=== PATIENT | female | born 1935 | race Caucasian/White ===

== ENCOUNTER 2022-07-14 17:19 | Inpatient (IN) ==
[2022-07-14] MEDS ORDERED: Ondansetron ODT 4 MG TAB.RAPDIS SL PRN (20:29)
[2022-07-14] MEDS ORDERED: Naloxone 0.4 MG/ML INJ IVP PRN ×2 (20:29→20:41)
[2022-07-14] MEDS ORDERED: Melatonin 3 MG TABLET PO PRN (20:29)
[2022-07-14] MEDS ORDERED: D5% in Water 1,000 ML IVC PRN (20:30)
[2022-07-14] MEDS ORDERED: Dextrose Gel 15 GM/37.5 ML TUBE PO PRN ×2 (20:30)
[2022-07-14] MEDS ORDERED: *HR* Dextrose 50 % in Water (Syg) 50 ML SYRINGE IVP PRN (20:30)
[2022-07-14] MEDS ORDERED: Acetaminophen 325 MG TABLET PO PRN (20:41)
[2022-07-14] MEDS ORDERED: Ondansetron 4 MG/2 ML VIAL IVP PRN (20:41)
[2022-07-14 22:11] LABS: Calcium 9.2 mg/dL (8.6-10.3); Potassium 5.8 mEq/L (3.5-5.1)
[2022-07-14 22:29] LABS: Magnesium 2.1 mg/dL (1.6-2.6); Troponin I 0.03 ng/mL (< 0.04)
[2022-07-14 22:31] LABS: Albumin 3.3 g/dL (3.5-5.7); Albumin/Globulin Ratio 1.3 (1.1-2.2); Globulin 2.6 g/dL (2.4-3.5); Total Protein 5.9 g/dL (6.4-8.9)
[2022-07-14] MEDS ORDERED: Insulin Human Regular 10 UNIT in 0.9 % Sodium Chloride 10 ML IV ONE (23:35)
[2022-07-14] MEDS ORDERED: Calcium Gluconate 1gm/50mL 1 GM/50 ML BAG IVPB PRN (23:35)
[2022-07-15] MEDS: Insulin LISPRO 300 UNITS/3 ML VIAL SUBQ SCH ×4 (00:17→16:18)
[2022-07-15 00:34] LABS: Basophils % 0.2 %; Hematocrit 33.4 % (35.3-44.9); Hemoglobin 10.8 g/dL (11.5-15.4); Immature Granulocytes % 1.4 % (0-4); Lymphocytes # 0.8 K/mcL (0.6-4.6); Lymphocytes % 6.2 %; Mean Corpuscular HGB Conc 32.3 g/dL (31.6-35.5); Mean Corpuscular Hemoglobin 30.4 pg (28.0-33.3); Mean Platelet Volume 10.8 fL (9.4-12.4); Monocytes # 0.1 K/mcL (0.0-1.3); Neutrophils # 11.5 K/mcL (1.6-8.9); Platelet Count 216 K/mcL (140-400); Red Blood Count 3.55 M/mcL (3.82-4.97); Red Cell Distribution Width 14.6 % (11.5-14.5); Segmented Neutrophils % 91.2 %; White Blood Count 12.6 K/mcL (4.3-11.1)
[2022-07-15 00:36] LABS: Mean Corpuscular Volume 94.1 fL (83.0-100.0)
[2022-07-15] MEDS: 0.9 % Sodium Chloride 1,000 ML IVC SCH ×3 (00:53→20:26)
[2022-07-15] MEDS: SODIUM ZIRCONIUM CYCLOSILICATE 5 GM POWD.PACK PO SCH ×3 (01:13→14:11)
[2022-07-15] MEDS: Pantoprazole 40 MG VIAL IVP SCH ×2 (05:51→16:54)
[2022-07-15 05:58] LABS: Prothrombin Time 11.1 Seconds (9.4-12.1)
[2022-07-15 06:49] LABS: Hematocrit 33.5 % (35.3-44.9); Hemoglobin 11.1 g/dL (11.5-15.4); Mean Corpuscular HGB Conc 33.1 g/dL (31.6-35.5); Mean Corpuscular Hemoglobin 30.3 pg (28.0-33.3); Mean Corpuscular Volume 91.5 fL (83.0-100.0); Mean Platelet Volume 10.9 fL (9.4-12.4); Platelet Count 220 K/mcL (140-400); Red Blood Count 3.66 M/mcL (3.82-4.97); Red Cell Distribution Width 14.5 % (11.5-14.5); White Blood Count 12.4 K/mcL (4.3-11.1)
[2022-07-15 08:33] LABS: Hepatitis B Surface Antigen Nonreactive (Nonreactive)
[2022-07-15 09:01] LABS: Albumin 3.2 g/dL (3.5-5.7); Albumin/Globulin Ratio 1.2 (1.1-2.2); Bilirubin,Total 0.9 mg/dL (0.3-1.0); Calcium 9.6 mg/dL (8.6-10.3); Globulin 2.6 g/dL (2.4-3.5); Potassium 5.2 mEq/L (3.5-5.1); Total Protein 5.8 g/dL (6.4-8.9)
[2022-07-15 09:02] LABS: Hepatitis B Core IgM Nonreactive (Nonreactive)
[2022-07-15 09:03] LABS: Hepatitis A Antibody IgM Nonreactive (Nonreactive); Hepatitis C Virus Antibody Nonreactive (Nonreactive)
[2022-07-15 09:04] LABS: Folate 9.5 ng/mL (3.0-16.0)
[2022-07-15 09:06] LABS: % Iron Saturation 40 % (15-50); Ferritin 643 ng/mL (10-120); Iron 102 mcg/dL (50-170); Transferrin 183 mg/dL (203-362)
[2022-07-15 09:15] LABS: Estimated Average Glucose 324 mg/dl; Hemoglobin A1C 12.9 %
[2022-07-15 09:16] LABS: Magnesium 2.1 mg/dL (1.6-2.6); Phosphorous 4.3 mg/dL (2.7-4.5)
[2022-07-15 11:49] LABS: Bilirubin,Urine Negative (Negative); Blood,Urine Negative (Negative); Budding Yeast,Urine Many per hpf (None Seen); Clarity,Urine Turbid (Clear); Color,Urine Light-Yellow (Yellow); Glucose,Urine (UA) 50 mg/dL (Normal); Ketones,Urine Negative (Negative); Leukocyte Esterase,Urine Moderate (Negative); Nitrite,Urine Positive (Negative); PH,Urine 5.5 pH Units (5.0-8.0); Protein,Urine Trace mg/dL (Neg-Trace); RBC,Urine 30-50 per hpf (0-3); Specific Gravity,Urine 1.015 (1.010-1.025); Squamous Epithelial Cell,Urine Few per hpf (None-Few); Urobilinogen,Urine Normal (Normal); WBC,Urine 15-30 per hpf (0-3)
[2022-07-15 15:08] LABS: Creatinine,Urine 48 mg/dL; Sodium, Urine < 10.0 mEq/L
[2022-07-15] MEDS ORDERED: SODIUM CHLORIDE/NAHCO3/KCL/PEG 4,000 ML SOLN.RECON PO ONE (17:00)
[2022-07-15 21:33] LABS: Adenovirus F 40/41 PCR Not detected (Not detect); Astrovirus PCR Not detected (Not detect); Campylobacter by PCR Not detected (Not detect); Cryptosporidium by PCR Not detected (Not detect); Cyclospora cayetanensis PCR Not detected (Not detect); Entamoeba histolytica PCR Not detected (Not detect); Enteroaggregative E.coli(EAEC) Not detected (Not detect); Enteropathogenic E.coli(EPEC) Not detected (Not detect); Enterotoxigenic E.coli (ETEC) Not detected (Not detect); Giardia lamblia PCR Not detected (Not detect); Norovirus GI/GII PCR Not detected (Not detect); Plesiomonas shigelloides PCR Not detected (Not detect); Rotavirus A PCR Not detected (Not detect); Salmonella PCR Not detected (Not detect); Sapovirus PCR Not detected (Not detect); Shig/EnteroinvasiveE coli EIEC Not detected (Not detect); Shigalike tox-prod E coli STEC Not detected (Not detect); Vibrio PCR Not detected (Not detect); Vibrio cholerae PCR Not detected (Not detect); Yersinia enterocolitica PCR Not detected (Not detect)
[2022-07-15 21:38] LABS: C.difficile Toxin A/B Gene PCR DETECTED (Not detect)
[2022-07-16] MEDS: Insulin LISPRO 300 UNITS/3 ML VIAL SUBQ SCH ×4 (01:45→17:53)
[2022-07-16 03:39] LABS: Magnesium 1.6 mg/dL (1.6-2.6); Phosphorous 2.3 mg/dL (2.7-4.5); Potassium 4.2 mEq/L (3.5-5.1)
[2022-07-16 04:12] LABS: Basophils % 0.2 %; Eosinophils # 0.2 K/mcL (0.0-0.6); Eosinophils % 1.7 %; Hematocrit 31.5 % (35.3-44.9); Hemoglobin 10.1 g/dL (11.5-15.4); Immature Granulocytes % 2.2 % (0-4); Lymphocytes # 1.6 K/mcL (0.6-4.6); Lymphocytes % 12.9 %; Mean Corpuscular HGB Conc 32.1 g/dL (31.6-35.5); Mean Corpuscular Hemoglobin 29.2 pg (28.0-33.3); Mean Platelet Volume 10.5 fL (9.4-12.4); Monocytes # 0.5 K/mcL (0.0-1.3); Monocytes % 3.9 %; Neutrophils # 9.9 K/mcL (1.6-8.9); Platelet Count 223 K/mcL (140-400); Red Blood Count 3.46 M/mcL (3.82-4.97); Red Cell Distribution Width 14.6 % (11.5-14.5); Segmented Neutrophils % 79.1 %; White Blood Count 12.4 K/mcL (4.3-11.1)
[2022-07-16] MEDS: Pantoprazole 40 MG VIAL IVP SCH ×2 (06:24→17:54)
[2022-07-16] MEDS: 0.9 % Sodium Chloride 1,000 ML IVC SCH ×2 (06:25→20:16)
[2022-07-16] MEDS ORDERED: Simethicone 40 MG/0.6 ML MLS IR ONE (07:55)
[2022-07-16] MEDS: Ringers Solution, Lactated 1,000 ML IVC SCH (07:56)
[2022-07-16] MEDS ORDERED: Lidocaine -MPF 2% 5 ML VIAL ONE (08:27)
[2022-07-16] MEDS ORDERED: *HR* Propofol 200 MG/20 ML VIAL IVP ONE ×2 (08:27→08:28)
[2022-07-16] MEDS: carvediloL 25 MG TABLET PO SCH ×2 (11:02→15:19)
[2022-07-16] MEDS: cefTRIAXone 1,000 MG in 0.9 % Sodium Chloride 10 ML IVP SCH (11:02)
[2022-07-16] MEDS: Sacubitril/Valsartan 97/103 MG 1 TAB TABLET PO SCH ×2 (11:02→20:16)
[2022-07-16] MEDS: Cyanocobalamin (B-12) 1,000 MCG TABLET PO SCH (15:19)
[2022-07-16] MEDS: Vancomycin Oral Soln 125 MG/2.5 ML UDC PO SCH ×3 (15:19→22:13)
[2022-07-16] MEDS ORDERED: Latanoprost 2.5 ML BOTTLE BOTH EYES SCH (21:00)
[2022-07-16] MEDS ORDERED: Insulin LISPRO 300 UNITS/3 ML VIAL SUBQ SCH (21:00)
[2022-07-17 03:32] LABS: Calcium 7.1 mg/dL (8.6-10.3); Magnesium 1.2 mg/dL (1.6-2.6); Phosphorous 1.4 mg/dL (2.7-4.5)
[2022-07-17 04:19] LABS: Basophils % 0.3 %; Eosinophils # 0.3 K/mcL (0.0-0.6); Eosinophils % 1.7 %; Hemoglobin 9.4 g/dL (11.5-15.4); Immature Granulocytes % 4.4 % (0-4); Lymphocytes # 2.6 K/mcL (0.6-4.6); Lymphocytes % 17.2 %; Mean Corpuscular HGB Conc 33.6 g/dL (31.6-35.5); Mean Platelet Volume 10.6 fL (9.4-12.4); Monocytes # 0.7 K/mcL (0.0-1.3); Monocytes % 4.4 %; Neutrophils # 10.8 K/mcL (1.6-8.9); Platelet Count 223 K/mcL (140-400); Red Blood Count 3.13 M/mcL (3.82-4.97); Red Cell Distribution Width 14.4 % (11.5-14.5); White Blood Count 15.1 K/mcL (4.3-11.1)
[2022-07-17 04:45] LABS: Mean Corpuscular Volume 89.5 fL (83.0-100.0)
[2022-07-17] MEDS: Pantoprazole 40 MG VIAL IVP SCH (06:32)
[2022-07-17] MEDS: 0.9 % Sodium Chloride 1,000 ML IVC SCH (06:32)
[2022-07-17] MEDS: Insulin LISPRO 300 UNITS/3 ML VIAL SUBQ SCH ×2 (08:37→13:00)
[2022-07-17] MEDS: cefTRIAXone 1,000 MG in 0.9 % Sodium Chloride 10 ML IVP SCH (09:35)
[2022-07-17] MEDS: Sacubitril/Valsartan 97/103 MG 1 TAB TABLET PO SCH ×2 (09:38→09:48)
[2022-07-17] MEDS: Vancomycin Oral Soln 125 MG/2.5 ML UDC PO SCH (09:38)
[2022-07-17] MEDS: Ringers Solution, Lactated 1,000 ML IVC SCH (09:38)
[2022-07-17] MEDS: carvediloL 25 MG TABLET PO SCH ×2 (09:38→09:46)
[2022-07-17] MEDS: Cyanocobalamin (B-12) 1,000 MCG TABLET PO SCH ×2 (09:38→09:48)
[2022-07-17 14:36] LABS: Influenza A PCR Negative (Negative); Influenza B PCR Negative (Negative); Resp. Syncytial Virus PCR Negative (Negative)
[2022-07-17 14:37] LABS: SARS-CoV-2 by PCR (In House) Negative (Negative)
[2022-07-17 14:58] VITALS: BP 118/78; PULSE 76; TEMP 99; O2SAT 95
== END 2022-07-17 16:26 | DRG 683 ==
LOC: 3NENU → SUATTDRO 20:41
PROVIDERS: ADMIT Internal Medicine; ATTEND Family Medicine